=== PATIENT | male | born 1955 | race Caucasian/White ===

== ENCOUNTER 2023-01-10 10:33 | Outpatient (CLI) | payer MEDICARE, OTHER ==
[2023-01-10 13:06] LABS: FECAL OCCULT BLOOD (FIT) NEGATIVE (NEGATIVE)
== END 2023-01-10 10:34 | disposition home or self-care (01) ==
LOC: LAB.R 10:33
PROVIDERS: ATTEND Family Medicine
DX: Z12.11 Encounter for screening for malignant neoplasm of colon (principal)
CPT/HCPCS: 82274

== ENCOUNTER 2024-05-06 14:08 | Outpatient (CLI) | payer MEDICARE, OTHER ==
[2024-05-06 14:34] LABS: CALCIUM 9.5 mg/dL (8.5-10.3); CREATININE 1.3 mg/dL (0.6-1.3); POTASSIUM 3.8 mmol/L (3.5-4.5)
== END 2024-05-06 14:09 | disposition home or self-care (01) ==
LOC: LAB 14:08
DX: N28.9 Disorder of kidney and ureter, unspecified (principal)
CPT/HCPCS: 36415; 80048